=== PATIENT | male | born 1965 | race Caucasian/White ===

== ENCOUNTER 2022-07-05 08:00 | Emergency (ER) | payer BC, SELFPAY ==
[2022-07-05 08:11] VITALS: BP 145/84; PULSE 99; RESP 20; TEMP 36; O2SAT 93; BMI 25.1
--- NOTE | 2022-07-05 08:19 | ED_ITS ---
HPI - General Adult General Time Seen by Provider: 08:19 Date Seen: 07/05/22 Chief complaint: Skin/Abscess/Foreign Body Stated complaint: Boil on genitals, needs ultrasound Time Seen by Provider: 07/05/22 08:17 Source: patient, RN notes reviewed and old records reviewed (Visit note from urgent care yesterday) Mode of arrival: ambulatory Limitations: no limitations History of Present Illness HPI narrative: This 66-year-old male is coming in with a lesion on his left testicle. I have reviewed his urgent care notes. He did try doing a warm tub baths this morning. There is pain in the testicle. He recollects that he had had an abscess more in the groin area and not on the testicle that had to be drained before. He has run some low-grade fevers yesterday. Denies any urinary symptoms. No abdominal pain. The area has not opened up and drained in the CT did come back to the ED today for further evaluation. He did start Bactrim yesterday. Onset (ago): day(s) Related Data Previous Rx's Medication Instructions Recorded sulfamethoxazole 800 1 tab PO BID 10 days #20 tabs 07/04/22 mg-trimethoprim 160 mg tablet (Bactrim DS) Allergies Allergy/AdvReac Type Severity Reaction Status Date / Time codeine Allergy Unknown Verified 07/04/22 14:58 Review of Systems Status of ROS: Reports: 6 or more systems reviewed and unremarkable except as noted in History and below PFSH PFSH Social History Smoking Status: Current every day smoker Exam Const: Vital Signs, click to edit/add: Vital Signs - 24 hr 07/05/22 08:11 Temperature 96.8 F L Pulse Rate [Right Pulse Oximeter] 99 Respiratory Rate 20 Blood Pressure [Ri ght Upper Arm] 145/84 H Pulse Oximetry 93 Oxygen Delivery Me thod Room Air Documenting provider has reviewed patient's vital signs: yes Common normals: no apparent distress, oriented x3, no limitations, healthy appearing, alert and well nourished General appearance: cooperative, comfortable and well kempt Nutritional appearance: overweight HENMT: Common normals: normocephalic, head/scalp atraumatic and hearing grossly normal bilaterally Head and scalp: normocephalic and atraumatic Eye: Common normals: PERRL, EOMs intact bilaterally, conjunctivae normal and no scleral icterus Conjunctiva: conjunctiva(e) normal Pupil: PERRL Resp: Common normals: normal respiratory effort, no retractions, no use of accessory muscles and clear to auscultation bilaterally Auscultation: clear to auscultation bilaterally Cardio: Common normals: regular rate, regular rhythm, S1 normal heart sound, S2 normal heart sound, no gallops, no clicks, no murmurs and no rub Rate: regular rate Rhythm: regular rhythm Heart sounds: S1 normal and S2 normal GI: Common normals: Normal to inspection, nondistended, normoactive bowel sounds present, soft to palpation, non-tender, no hepatosplenomegaly and no masses Palpation: soft and no hepatosplenomegaly : Penis: normal penis and circumcised Scrotum: testes descended bilaterally Other: On the left anterolateral scrotum there is a superficial raised erythematous area with whitish change of a probable developing pustular area at the inferior aspect of this lesion. It is tender. Does have some induration but also some fluctuance particularly in the area of the whitish change. This looks to be an abscess area. I do agree with the provider yesterday that we should image this and will do a scrotal ultrasound. Extremity: Common normals: normal to inspection, full ROM, normal capillary refill, no joint enlargement, no clubbing, cyanosis or edema, no calf tenderness and no pedal edema Neuro: Common normals: oriented x3 Sensorium/orientation: alert Psych: Appearance: well kempt Course Vital Signs Vital signs: Initial Vital Signs Temperature 96.8 F L 07/05/22 08:11 Temperature Source Temporal Artery Scan 07/05/22 08:11 Pulse Rate 99 07/05/22 08:11 Pulse Rhythm 07/05/22 08:11 Pulse Strength 3+ Normal 07/05/22 08:11 Respiratory Rate 20 07/05/22 08:11 Blood Pressure 145/84 H 07/05/22 08:11 Blood Pressure Mean 104 07/05/22 08:11 Blood Pressure Position Sitting 07/05/22 08:11 Pulse Oximetry 93 07/05/22 08:11 Oxygen Delivery Method 07/05/22 08:11 Vital Signs Temperature 96.8 F L 07/05/22 08:11 Pulse Rate 99 07/05/22 08:11 Respiratory Rate 20 07/05/22 08:11 Blood Pressure 145/84 H 07/05/22 08:11 Pulse Oximetry 93 07/05/22 08:11 Oxygen Delivery Method 07/05/22 08:11 Temperature 96.8 F L 07/05/22 08:11 Pulse Rate 99 07/05/22 08:11 Respiratory Rate 20 07/05/22 08:11 Blood Pressure 145/84 H 07/05/22 08:11 Pulse Oximetry 93 07/05/22 08:11 Oxygen Delivery Method 07/05/22 08:11 Medical Decision Making Imaging Data Scrotal ultrasound: Attestation: I have reviewed the pertinent imaging results. Radiologist's impression: Patient: DANUTA HELMS Facility:?[facility] Patient ID:?[id number] Site Patient ID:?[id number]. Site :?[id number] Study:?US Testicle -07/05/2022 9:13:46 AM Ordering Physician:?Juanjo Thompson Final Report: Indication: Left testicular lesion? Likely abscess. Technique: Ultrasound of the scrotum and contents. Sonographic butts-scale images were obtained with spectral and color Doppler waveform and spectral waveform analysis of the testicles. Comparison: None. Findings: Right testicle: 4.4 x 1.8 x 2.4 cm. Heterogeneous echotexture. Several extratesticular lesions could be complex cysts. The largest measures 0.8 x 0.5 x 0.7 cm. Normal arterial and venous color Doppler blood flow and spectral waveforms. Right epididymis: Unremarkable. Normal blood flow. Left testicle: 3.5 x 1.8 x 2.2 cm. Heterogeneous echotexture. No masses or suspicious calcifications. Normal arterial and venous color Doppler blood flow and spectral waveforms. Left epididymis: Unremarkable. Normal blood flow. Other: No hydrocele. No varicocele. Scrotal wall is thickened. Circumscribed isoechoic lesion in the scrotum measures 2 x 1.2 x 1.6 cm. Impression: 1. Heterogeneous appearance of both testicles, with normal blood flow. 2. Multiple small complex cystic-appearing lesions are extratesticular. 3. Scrotal thickening, with isoechoic area corresponding to the palpable lump. This is indeterminate, but a infected collection is within the differential diagnosis. Recommend short interval follow-up after appropriate therapy to confirm resolution. Dictated by Phillip Grace MD @ 07/05/2022 9:23:05 AM (Electronic Signature) Critical Care Time Critical Care Time Critical Care Time: No Discharge Plan Discharge Clinical Impression: Status post incision and drainage, Infected sebaceous cyst of skin Patient Disposition: Home, Self-Care Condition: Stable Instructions: Cyst (ED) Additional Instructions: This may drain for few days, will likely no longer drain beyond a week. If there is recurrence, can talk to Urology or even possibly our General surgery for excision. I would complete the antibiotics. Can do Sitz baths for the next few days to keep this clean. May need to use a pad on your underwear for the next few days to catch any drainage. If the area is becoming more swollen, more painful, do not feel it is healing within the next week at all, do need to be re-evaluated. Activity Level: Activity as Tolerated Prescriptions: No Action sulfamethoxazole-trimethoprim [Bactrim DS] 800-160 mg tablet 1 tab PO BID 10 Days Qty: 20 0RF Follow Up/Referrals: Eloy Quinones MD [Primary Care Provider] - Stand Alone Forms: [facility] Info Instructions Procedures I/D Type: abscess (Left scrotum) Details: simple Site: scrotum Pre procedure diagnosis: Abscess Post procedure diagnosis: Infected sebaceous cyst Site marking: not applicable Verification/time out: correct patient, correct site, correct procedure and time out performed Name of person performing procedure: Donna Geiger Anesthesia I&D: lidocaine 1% (3 mL drawn up, 1.5 mL used) and with Epi Amount of anesthesia used (mls): 1.5 Side (if applicable): left Technique: other (Small scalpel) Amount of fluid expressed (mL): 2 Irrigation: No Packing used?: none Estimated blood loss (if any): none Specimens removed (if any): Initial purulent matter and then sebaceous matter, Caro used in cavity Conclusion: patient tolerated procedure
--- NOTE | 2022-07-05 08:27 | CRLHL7_ITS ---
For Patients: As a result of the Century Cures Act, medical imaging exams and procedure reports are released immediately into your electronic medical record. You may view this report before your referring provider. If you have questions, please contact your health care provider. Indication: Left testicular lesion? Likely abscess. Technique: Ultrasound of the scrotum and contents. Sonographic butts-scale images were obtained with spectral and color Doppler waveform and spectral waveform analysis of the testicles. Comparison: None. Findings: Right testicle: 4.4 x 1.8 x 2.4 cm. Heterogeneous echotexture. Several extratesticular lesions could be complex cysts. The largest measures 0.8 x 0.5 x 0.7 cm. Normal arterial and venous color Doppler blood flow and spectral waveforms. Right epididymis: Unremarkable. Normal blood flow. Left testicle: 3.5 x 1.8 x 2.2 cm. Heterogeneous echotexture. No masses or suspicious calcifications. Normal arterial and venous color Doppler blood flow and spectral waveforms. Left epididymis: Unremarkable. Normal blood flow. Other: No hydrocele. No varicocele. Scrotal wall is thickened. Circumscribed isoechoic lesion in the scrotum measures 2 x 1.2 x 1.6 cm. Impression: 1. Heterogeneous appearance of both testicles, with normal blood flow. 2. Multiple small complex cystic-appearing lesions are extratesticular. 3. Scrotal thickening, with isoechoic area corresponding to the palpable lump. This is indeterminate, but a infected collection is within the differential diagnosis. Recommend short interval follow-up after appropriate therapy to confirm resolution. Dictated by Phillip Grace MD @ 07/05/2022 9:23:05 AM (Electronically Signed)
== END 2022-07-05 11:10 | disposition home or self-care (01) ==
PROVIDERS: Emergency Provider Family Medicine; PCP Family Medicine
DX: L72.3 Sebaceous cyst (principal)
CPT/HCPCS: 10060; 76870; 87070; 93976; 99283; 99284